=== PATIENT | male | born 1950 | race Caucasian/White ===

== ENCOUNTER 2024-11-23 19:39 | Emergency (ER) | payer OTHER ==
[2024-11-23 22:20] LABS: Glucose, Urine (Dipstick) >=1000 mg/dL (Negative); Leukocyte Negative (Negative); Protein, Urine (Dipstick) 15 mg/dl (Neg-Trace); Specific Gravity, Urine 1.015 (1.005-1.030)
[2024-11-23 22:27] LABS: Bacteria/HPF None Seen HPF (None Seen); CAUTI Indications for Culture Pelvic or flank pain; RBC/HPF 0-3 HPF (0-3); WBC/HPF None Seen HPF (0-3)
[2024-11-23 22:28] LABS: Urine Culture Reflex No No
[2024-11-23 22:49] LABS: ALT (SGPT) 31 U/L (Less than 45); AST (SGOT) 27 U/L (11-34); Albumin 4.2 g/dL (3.1-4.5); Alkaline Phosphatase 94 U/L (40-110); Anion Gap 15 mmol/L (10-20); BUN (Urea Nitrogen) 29 mg/dL (8.4-25.7); Bilirubin, Total 0.5 mg/dL (0.3-1.2); Calc. Creatinine Clearance 0 mL/min (70-130); Calcium 9.9 mg/dL (7.8-10.44); Carbon Dioxide 23 mmol/L (23-31); Chloride 100 mmol/L (98-107); Globulin 3.6 g/dL (2.4-3.5); Glucose 264 mg/dL (83-110); Lipase 57 U/L (8-78); Potassium 4.7 mmol/L (3.5-5.1); Sodium 133 mmol/L (136-145)
[2024-11-23 22:59] LABS: Hematocrit 43.0 % (38.8-50.0); Hemoglobin 14.0 g/dL (13.5-17.5); Mean Corpuscular Hemoglobin 27.5 pg (27.0-33.0); Mean Corpuscular Volume 84.5 fL (81.2-95.1); Platelet Count 188 10x3/uL (150-450); Red Blood Cell (RBC) Count 5.09 10x6/uL (4.32-5.72); White Blood Cell (WBC) Count 10.00 10x3/uL (3.5-10.5)
[2024-11-23 23:18] LABS: MDiff Complete? YES; Platelet Adequacy Comment Appears Adequate; RBC Morphology Within Normal Limits
== END 2024-11-24 00:59 | disposition home or self-care (01) ==
LOC: CSHERS 19:39
DX: R19.00 Intra-abdominal and pelvic swelling, mass and lump, unspecified site (principal); I25.10 Atherosclerotic heart disease of native coronary artery without angina pectoris; E11.22 Type 2 diabetes mellitus with diabetic chronic kidney disease; I12.9 Hypertensive chronic kidney disease with stage 1 through stage 4 chronic kidney disease, or unspecified chronic kidney disease; N18.9 Chronic kidney disease, unspecified; Z79.899 Other long term (current) drug therapy; Z79.4 Long term (current) use of insulin; Z79.84 Long term (current) use of oral hypoglycemic drugs
CPT/HCPCS: 74176; 80053; 81001; 83605; 83690; 85025; 93005

== ENCOUNTER 2024-12-06 07:59 | Outpatient (CLI) | payer OTHER ==
[2024-12-06 10:49] LABS: Estimated GFR - POC 42.0
[2024-12-06] MEDS ORDERED: Iopamidol 300 61% 100 ML VIAL FS ONE (12:41)
== END 2024-12-06 08:00 | disposition home or self-care (01) ==
LOC: CSHCT 07:59
PROVIDERS: ATTEND Specialist
DX: K63.89 Other specified diseases of intestine (principal); N12 Tubulo-interstitial nephritis, not specified as acute or chronic
CPT/HCPCS: 36415; 74178; 82565

== ENCOUNTER 2024-12-19 10:54 | Outpatient (CLI) | payer OTHER ==
[2024-12-19 11:33] LABS: Hematocrit 45.8 % (38.8-50.0); Hemoglobin 14.5 g/dL (13.5-17.5); Mean Corpuscular Hemoglobin 26.9 pg (27.0-33.0); Mean Corpuscular Volume 85.0 fL (81.2-95.1); Platelet Count 201 10x3/uL (150-450); Red Blood Cell (RBC) Count 5.39 10x6/uL (4.32-5.72); White Blood Cell (WBC) Count 8.44 10x3/uL (3.5-10.5)
[2024-12-19 11:34] LABS: #Basophils 0.05 10x3/uL (0.0-0.2); #Eosinophils 0.11 10x3/uL (0.0-0.5); #Monocytes 0.81 10x3/uL (0.0-1.1); #Neutrophils 6.07 10x3/uL (1.5-8.4); %Basophils 0.6 % (0.0-2.0); %Eosinophils 1.3 % (0.0-6.0); %Lymphocytes 16.2 % (18.0-47.0); %Monocytes 9.6 % (0.0-10.0); %Neutrophils 71.9 % (40.0-75.0)
[2024-12-19 11:49] LABS: Anion Gap 15 mmol/L (10-20); BUN (Urea Nitrogen) 15 mg/dL (8.4-25.7); Calc. Creatinine Clearance 0 mL/min (70-130); Calcium 9.8 mg/dL (7.8-10.44); Carbon Dioxide 26 mmol/L (23-31); Chloride 101 mmol/L (98-107); Glucose 204 mg/dL (83-110); Potassium 4.5 mmol/L (3.5-5.1); Sodium 137 mmol/L (136-145)
== END 2024-12-19 10:55 | disposition home or self-care (01) ==
LOC: CSHLAB 10:54
PROVIDERS: ATTEND Specialist
DX: Z01.818 Encounter for other preprocedural examination (principal); K63.89 Other specified diseases of intestine
CPT/HCPCS: 71046; 80048; 85025

== ENCOUNTER 2024-12-21 06:13 | Day surgery (SDC) | payer OTHER ==
[2024-12-19 11:32] VITALS: BMI 22.2
[2024-12-21] MEDS ORDERED: Ketorolac Tromethamine 30 MG (1 mL) VIAL ONE (06:33)
[2024-12-21] MEDS ORDERED: Acetaminophen 500 MG TAB ONE (06:33)
[2024-12-21] MEDS ORDERED: Bupivacaine/Epinephrine 0.25% 30 ML VIAL ONE (07:02)
[2024-12-21] MEDS ORDERED: CEFAZOLIN 2 GM VIAL ONE (07:02)
[2024-12-21] MEDS ORDERED: Rocuronium Bromide 10 MG/ML (10ML VIAL) ONE (07:20)
[2024-12-21] MEDS ORDERED: PROPOFOL 20 ML ONE (07:20)
[2024-12-21] MEDS ORDERED: Lidocaine 1% PF 5 ML VIAL ONE (07:20)
[2024-12-21] MEDS ORDERED: PHENYLEPHRINE-NS 100 MCG/ML 10 ML SYRINGE ONE (07:53)
[2024-12-21] MEDS ORDERED: Ondansetron PF 4 MG/2 ML Vial ONE (08:12)
[2024-12-21] MEDS ORDERED: SUGAMMADEX SODIUM 200 MG/2 ML VIAL ONE (08:12)
[2024-12-21] MEDS ORDERED: HYDROcodone/Acetaminophen 5/325 mg Tablet ONE (09:36)
== END 2024-12-21 10:00 | disposition home or self-care (01) ==
LOC: CSHSDC 06:13
PROVIDERS: ATTEND Specialist
PROC: 0DBV4ZX Excision of Mesentery, Percutaneous Endoscopic Approach, Diagnostic (ICD-10-PCS; principal; 2024-12-21)
DX: C83.33 Diffuse large B-cell lymphoma, intra-abdominal lymph nodes (principal); I10 Essential (primary) hypertension; E78.00 Pure hypercholesterolemia, unspecified; E11.9 Type 2 diabetes mellitus without complications; Z79.899 Other long term (current) drug therapy; Z79.84 Long term (current) use of oral hypoglycemic drugs; Z79.82 Long term (current) use of aspirin
CPT/HCPCS: 49321; 82962; A6258; J1885; J2405; J2704; 36416; 88184; 88305; 88341; 88342; 88360

== ENCOUNTER 2025-01-05 10:49 | Day surgery (SDC) | payer OTHER ==
[2025-01-04 15:53] VITALS: BMI 21.9
[2025-01-05] MEDS ORDERED: Ketorolac Tromethamine 30 MG (1 mL) VIAL ONE (12:09)
[2025-01-05] MEDS ORDERED: Bupivacaine/Epinephrine 0.25% 30 ML VIAL ONE (13:13)
[2025-01-05] MEDS ORDERED: CEFAZOLIN 2 GM VIAL ONE (13:18)
[2025-01-05] MEDS ORDERED: Lidocaine 1% PF 5 ML VIAL ONE (13:26)
== END 2025-01-05 15:27 | disposition home or self-care (01) ==
LOC: CSHSDC 10:49
PROVIDERS: ATTEND Specialist
PROC: 0JHD0WZ Insertion of Totally Implantable Vascular Access Device into Right Upper Arm Subcutaneous Tissue and Fascia, Open Approach (ICD-10-PCS; principal; 2025-01-05)
DX: C83.30 Diffuse large B-cell lymphoma, unspecified site (principal); I10 Essential (primary) hypertension; I25.10 Atherosclerotic heart disease of native coronary artery without angina pectoris; E11.9 Type 2 diabetes mellitus without complications; E78.00 Pure hypercholesterolemia, unspecified; E03.9 Hypothyroidism, unspecified; Z79.4 Long term (current) use of insulin; Z95.5 Presence of coronary angioplasty implant and graft; Z79.82 Long term (current) use of aspirin; Z79.84 Long term (current) use of oral hypoglycemic drugs; Z79.899 Other long term (current) drug therapy
CPT/HCPCS: 36561; 71045; C1788; J1642; J1885; J1100

== ENCOUNTER 2025-01-09 13:41 | Outpatient (CLI) | payer OTHER | END 2025-01-09 13:42 | disposition home or self-care (01) | LOC: CSHULT 13:41 | PROVIDERS: ATTEND Internal Medicine Hematology & Oncology | DX: C83.33 Diffuse large B-cell lymphoma, intra-abdominal lymph nodes (principal); I51.7 Cardiomegaly; I08.0 Rheumatic disorders of both mitral and aortic valves; R93.5 Abnormal findings on diagnostic imaging of other abdominal regions, including retroperitoneum | CPT/HCPCS: 78815; 93306; A9552 ==